=== PATIENT | female | born 1940 | race Caucasian/White ===

== ENCOUNTER → 2018-06-01 | Outpatient (CLI) | payer OTHER | LOC: M.ULTRA 09:19 | DX: I70.8 Atherosclerosis of other arteries (principal); F17.200 Nicotine dependence, unspecified, uncomplicated ==

== ENCOUNTER → 2018-09-16 | Outpatient (CLI) | payer OTHER | LOC: M.RAD 08:57 | DX: Z12.31 Encounter for screening mammogram for malignant neoplasm of breast (principal); Z78.0 Asymptomatic menopausal state; M85.88 Other specified disorders of bone density and structure, other site ==

== ENCOUNTER → 2019-09-20 | Outpatient (CLI) | payer OTHER | LOC: M.RAD 10:12 | DX: Z12.31 Encounter for screening mammogram for malignant neoplasm of breast (principal) ==

== ENCOUNTER → 2020-02-08 | Outpatient (CLI) | payer OTHER ==
--- NOTE | 2020-02-08 13:57 | CARDNUC ---
[place] [address] CARDIAC NUCLEAR IMAGING REPORT Name: SOFIA VIDALES Room: [facility]#: [id number] Admission: 02/08/20 Attend Phys: Melany Johnson, Discharge: Date of : 44 Date of Service: 02/08/20 1356 Report #: [id number] THIS REPORT FOR: cc: Yarely Mendez Linda J. DO Liston, Michael J. MD [facility] ~ APPROVED REPORT Imaging Protocol: Rest Tc-99m/Stress Tc-99m 1 day Study performed: 02/08/2020 09:49:12 Indication: CAD, Previous ABN stress test. Patient Location: Out-Patient Stress Tech: Lita Chowdhury Stress Nurse: Kendra Mitchell RN NM Tech:HERB Almodovar Ht: 5 ft 2 in Wt: 162 lbs BSA: 1.75 m2 BMI: 29.62 Medical History Medical History: CAD with catherization, Bruit of Left Carotid Artery, COPD, Previous ABN stress test, HTN, HLD, Hip pain, Arthritis, Current smoker. Medications: ASA 81 Mg, Carvedilol, Diltiazem, Lisinopril, KCl, Rosuvastatin, Maxide. Allergies: Amlodipine, Clindamycin, Tape/Adhesive. Cardiac Risk Factors: Age, Current Smoker, FHX of CAD, HTN, Hyperlipidemia, Smoking, Tobacco History (Current/Recent). Previous Cardiac Procedures: Catherization Pretest Chest Pain Characteristics: No chest pain Exercise History: Sedentary Physical Disabilities: Hip pain, arthritis. Meds Held (24 hrs): Carvedilol, Lisinopril. Resting Data Rest SPECT myocardial perfusion imaging was performed in supine position 30 minutes following the intravenous injection of 10.1 mCi of Tc-99m Sestamibi. Time of rest injection: 804 Date: 02/08/2020 The images were gated to evaluate regional wall motion and calculate left ventricular ejection fraction. Administration Route: IV Administration Site: [place] [address] CARDIAC NUCLEAR IMAGING REPORT Name: SOFIA VIDALES Room: [facility]#: [id number] Admission: 02/08/20 Attend Phys: Melany Johnson, Discharge: Date of : 44 Date of Service: 02/08/20 1356 Report #: [id number] Pharmacologic Stress Pharmacologic stress test was performed by injecting Regadenoson 0.4 mg IV push over 10-15 seconds immediately followed by the intravenous injection of 32.9 mCi of Tc-99m Sestamibi. Time of stress injection: 944 Date: 02/08/2020 Administration Route: IV Administration Site: Right Hand Gated Stress SPECT was performed 40 minutes after stress injection. The images were gated to evaluate regional wall motion and calculate left ventricular ejection fraction. Prone imaging was performed. Stress Test Details Stress Test: Pharmacologic stress testing performed using 0.4 mg of regadenoson per 5 mL given IV over 10 seconds. Reason for pharmacologic stress test: Hip pain, arthritis.. HR Max Heart Rate (APMHR): 143 bpm Resting HR: 78 bpm Target HR (85% APMHR): 121 bpm Max HR Achieved: 108 bpm % of APMHR: 75 Recovery HR: 97 bpm BP Resting BP: 172/100 mmHg Max BP: 213/96 mmHg Recovery BP: 206/93 mmHg ECG Resting ECG: Sinus Rhythm Stress ECG: Sinus Tachycardia ST Change: None Arrhythmia: None Recovery ECG: Sinus Rhythm Recovery ST Change: None Recovery Arrhythmia: None Clinical Reason for Termination: Completed protocol Stress Symptoms: HTN, Flushed/warmth. Exercise duration: 00 min 00 sec Exercise capacity: 1.00 METs The patient tolerated Lexiscan infusion [place] [address] CARDIAC NUCLEAR IMAGING REPORT Name: SOFIA VIDALES Room: [facility]#: [id number] Admission: 02/08/20 Attend Phys: Melany Johnson, Discharge: Date of : 44 Date of Service: 02/08/20 1356 Report #: [id number] Nurse Comments A 79 year old female presented for a sitting Lexiscan r/t CAD and previous ABN Stress Test. Test tolerated with HTN, warmth/flushed feeling. Recovery unremarkable with PO caffeine, effective. Patient was escorted by staff to Nuclear Medicine for imaging. Patient was stable but hypertensive and stated she felt good at that time. Patient did take her blood pressure medications, that she brought from home, during recovery. Stress ECG Conclusion The baseline 12-lead EKG show sinus rhythm without significant ST segment abnormality. EKGs and post skin infusion show sinus rhythm and sinus tachycardia with no significant ST segment or T wave changes when compared to baseline. There were no stress-induced arrhythmias. Study Quality Study: Good Artifact: No artifact Study Data At rest, the left ventricular ejection fraction was 77%.. Post stress, the left ventricular ejection was 73%.. TID = 1.00. Perfusion Normal left ventricular perfusion. Wall Motion Normal left ventricular wall motion. Nuclear Conclusion ECG Findings: negative for ischemia Clinical Findings: negative for ischemia Nuclear Findings: negative for ischemia Left Ventricular Function: normal Risk Study: low Myocardial perfusion images show no defect to suggest infarct or ischemia. Left ventricular systolic function appears normal on gated studies. This is a low risk study. <Conclusion> The baseline 12-lead EKG show sinus rhythm without significant ST segment abnormality. EKGs and post skin infusion show sinus rhythm and sinus tachycardia with no significant ST [place] [address] CARDIAC NUCLEAR IMAGING REPORT Name: SOFIA VIDALES [id number] Admission: 02/08/20 Attend Phys: Melany Johnson, Discharge: Date of : 44 Date of Service: 02/08/20 1356 Report #: [id number] changes when compared to baseline. There were no stress-induced arrhythmias. <ELECTRONICALLY SIGNED> By: Magdy Funes MD, FACC 02/08/20 1356 1356 1356 Magdy Funes MD, FACC /INF
== END ==
LOC: M.NUC 12-24 11:24 → M.CRD 01-07 08:00 → M.NUC 01-07 08:00
DX: R94.39 Abnormal result of other cardiovascular function study (principal)

== ENCOUNTER → 2020-09-19 | Outpatient (CLI) | payer OTHER | LOC: M.RAD 09:24 | PROVIDERS: ATTEND Family Medicine | DX: Z12.31 Encounter for screening mammogram for malignant neoplasm of breast (principal) ==

== ENCOUNTER → 2021-02-22 | Outpatient (CLI) | payer OTHER | LOC: M.RAD 08:35 | PROVIDERS: ATTEND Family Medicine | DX: M81.0 Age-related osteoporosis without current pathological fracture (principal); M85.88 Other specified disorders of bone density and structure, other site ==

== ENCOUNTER 2021-08-09 18:57 | Emergency (ER) | payer OTHER ==
[~2021-08-09] VITALS: Ht 157.5 cm; Wt 72.6 kg
[2021-08-09] MEDS ORDERED: ZESTRIL40 MG PO (19:08)
[2021-08-09] MEDS ORDERED: CARVEDILOL25 MG PO (19:08)
[2021-08-09] MEDS ORDERED: EFFER-K 10 MEQ10 ME1 PO (19:08)
[2021-08-09] MEDS ORDERED: ASPIR-TRIN325 MG PO (19:09)
[2021-08-09] MEDS ORDERED: DILTIAZEM 24HR240 M1 PO (19:09)
[2021-08-09] MEDS ORDERED: ROSUVASTATIN CA20 MG PO (19:09)
[2021-08-09 20:20] VITALS: BP 151/64
== END 2021-08-09 20:20 | disposition left against medical advice (07) ==
LOC: M.ERS 18:57
DX: H57.12 Ocular pain, left eye (principal); H57.89 Other specified disorders of eye and adnexa; Z53.21 Procedure and treatment not carried out due to patient leaving prior to being seen by health care provider

== ENCOUNTER → 2021-09-20 | Outpatient (CLI) | payer OTHER ==
[~2021-09-20] MED LIST: ASPIR-TRIN325 MG PO; CARVEDILOL25 MG PO; DILTIAZEM 24HR240 M1 PO; EFFER-K 10 MEQ10 ME1 PO; ROSUVASTATIN CA20 MG PO; ZESTRIL40 MG PO
== END ==
LOC: M.RAD 09:50
PROVIDERS: ATTEND Family Medicine
DX: Z12.31 Encounter for screening mammogram for malignant neoplasm of breast (principal)